=== PATIENT | female | born 1955 | race Hispanic/Latino ===

== ENCOUNTER 2017-09-21 15:10 | Observation (INO) | payer SELFPAY ==
[2017-09-21 15:57] LABS: Anion Gap 11 mmol/L (10-20); BUN (Urea Nitrogen) 55 mg/dL (9.8-20.1); Calc. Creatinine Clearance 0 mL/min (70-130); Calcium 8.4 mg/dL (7.8-10.44); Carbon Dioxide 18 mmol/L (23-31); Chloride 113 mmol/L (98-107); Estimated GFR-MDRD 11; Glucose 109 mg/dL (80-115); Potassium 6.1 mmol/L (3.5-5.1); Sodium 136 mmol/L (136-145)
[2017-09-21 16:38] LABS: #Eosinphils 0.5 thou/uL (0.0-0.7); #Lymphocytes 1.9 thou/uL (1.20-3.40); #Monocytes 0.3 thou/uL (0.11-0.59); #Neutrophils 3.5 thou/uL (1.40-6.50); %Basophils 0.8 % (0.0-1.0); %Eosinophils 7.3 % (0.0-10.0); %Lymphocytes 30.7 % (21.0-51.0); %Monocytes 5.3 % (0.0-10.0); %Neutrophils 55.9 % (42.0-75.0); Hemoglobin 8.2 g/dL (12.0-16.0); Mean Corpuscular HGB CONC 34.2 g/dL (32.0-36.0); Mean Corpuscular Hemoglobin 32.1 pg (27.0-31.0); Mean Corpuscular Volume 93.9 fl (81.0-99.0); Mean Platelet Volume 7.9 fL (7.4-10.4); Platelet Count 193 thou/uL (130-400); RBC Distribution Width 12.9 % (11.5-14.5); Red Blood Cell (RBC) Count 2.54 mill/uL (4.20-5.40); White Blood Cell (WBC) Count 6.3 thou/uL (4.8-10.8)
[2017-09-21 16:41] LABS: CKMB 3.6 ng/mL (0-6.6); Troponin I Less than 0.010 ng/mL (< 0.028)
[2017-09-21] MEDS ORDERED: Milk Of Magnesia 30 ML UDCUP PO PRN (16:42)
[2017-09-21] MEDS ORDERED: Sodium Chloride 0.9% 1,000 ML IV SCH ×2 (16:45→18:46)
[2017-09-21] MEDS ORDERED: Dextrose 5% in Water 1,000 ML IV PRN (16:47)
[2017-09-21] MEDS ORDERED: Dextrose 50% Abboject 50 ML SYRINGE SLOW IVP PRN (16:47)
[2017-09-21] MEDS ORDERED: HumaLOG 300 UNITS/3 ML VIAL SC PRN (16:47)
--- NOTE | 2017-09-21 17:56 | HP ---
PRIMARY CARE PHYSICIAN: ELOISA PHELAN MD PRESENTING COMPLAINT: "I was told I had abnormal labs." HISTORY OF PRESENT ILLNESS: Ms. Mark Davis is a 62-year-old female with a past medical history of type 2 diabetes mellitus, hypertension, nephrolithiasis , and CKD who presented to the emergency room after she went to [facility] and was told she had abnormal labs. She was called and told to present to the emergency room. She has no complaints. Her appetite is good, but she reports she does not really drink enough water. She has no chest pain, shortness of breath, dizziness, diaphoresis. She has no palpitations, PND, orthopnea, or lower extremity edema. PAST MEDICAL HISTORY: As stated in the HPI. PAST SURGICAL HISTORY: None. FAMILY HISTORY: Reviewed and noncontributory. SOCIAL HISTORY: Does not drink alcohol, smoke cigarettes, or use illicit drugs. ALLERGIES: None. HOME MEDICATIONS: None yet, will be reviewed. REVIEW OF SYSTEMS: Ten-point review of systems is conducted and negative except as stated in HPI. PHYSICAL EXAMINATION: VITAL SIGNS: Elevated blood pressure with systolic in the 180s. GENERAL: Not in acute distress, lying comfortable in the bed. HEENT: Normocephalic, atraumatic. Not pale. Anicteric. PERRLA. EOMI. Moist mucous membranes. RESPIRATORY: Vesicular breath sounds bilaterally. No wheezes, rales, or rhonchi. CARDIOVASCULAR: S1, S2 with regular rate and rhythm. No murmurs, rubs, or gallops. ABDOMEN: Soft, nontender, nondistended. Bowel sounds are positive. No hepatosplenomegaly. MUSCULOSKELETAL: No edema, no skeletal abnormalities. Moves all extremities spontaneously. NEUROLOGIC: Alert and oriented to time, place and person. No focal deficits. PSYCHIATRIC: Normal mood and affect. SKIN: Warm, dry, well perfused. No rashes or lesions. LABORATORY DATA: Significant for mildly low for anemia with hemoglobin 8.2. Chemistry with potassium of 6.1, BUN and creatinine of 55 and 4.16 respectively. Troponin is less than 0.010. ASSESSMENT AND PLAN: 1. Acute on chronic renal failure in a patient with what seems to be a newly diagnosed chronic renal failure presenting with acute failure. She was started on IV fluids. We will also obtain a renal ultrasound and a Nephrology consult. We will repeat labs and trend creatinine. 2. Hyperkalemia, likely secondary to acute renal failure. She is asymptomatic. She has received 1 dose of Kayexalate. We will repeat another dose later and monitor on telemetry. 3. Hypertension. Blood pressure is currently uncontrolled. We will resume home medications and monitor. Hydralazine IV p.r.n. for a systolic blood pressure greater than 180. 4. Type 2 diabetes mellitus. She reports being diet controlled. We will obtain hemoglobin A1c and place on a diabetic diet. Hypoglycemia protocol and fingerstick glucose before meals and at bedtime. 5. Chronic kidney disease. Retroperitoneal ultrasound ordered. We will also monitor in's and out's. CODE STATUS: FULL. MTDD
[2017-09-21] MEDS ORDERED: Carvedilol 6.25 MG TAB PO SCH (18:47)
[2017-09-21] MEDS: hydrALAZINE 20 MG/ML VIAL SLOW IVP PRN (18:48)
--- NOTE | 2017-09-21 19:12 | ULT ---
RENAL SONOGRAM 09/21/17 HISTORY: Medical renal disease. FINDINGS: The right kidney measures 8.6 cm x 3.7 cm with the left kidney measuring 9.6 cm x 4.7 cm. No renal ma ss, renal calculus or hydronephrosis is seen bilaterally. There is partial obscuration of the left ki dney due to shadowing from bowel gas, again no definite abnormality seen involving the left kidney. The urinary bladder has a normal sonographic appearance with the urinary bladder volume of 259.2 mL. IMPRESSION: Normal appearing bilateral kidneys without evidence of hydronephrosis. POS: SUNNY
[2017-09-21 19:14] LABS: Anion Gap 13 mmol/L (10-20); BUN (Urea Nitrogen) 54 mg/dL (9.8-20.1); Calc. Creatinine Clearance 0 mL/min (70-130); Calcium 8.6 mg/dL (7.8-10.44); Carbon Dioxide 16 mmol/L (23-31); Chloride 114 mmol/L (98-107); Estimated GFR-MDRD 11; Glucose 96 mg/dL (80-115); Potassium 5.7 mmol/L (3.5-5.1); Sodium 137 mmol/L (136-145)
[2017-09-21] MEDS ORDERED: Ondansetron ORAL SOLN. 4 MG/5 ML UDCUP PO PRN (19:21)
[2017-09-21] MEDS: Acetaminophen 325 MG TAB PO PRN (19:31)
[2017-09-21] MEDS: Ondansetron HCl/PF 4 MG/2 ML Vial IVP PRN (19:31)
[2017-09-21] MEDS: Famotidine 20 MG TAB PO SCH (19:50)
[2017-09-21] MEDS: Heparin 5,000 UNITS/ML VIAL SC SCH (19:52)
[2017-09-21] MEDS ORDERED: Sodium Bicarbonate 150 MEQ in Dextrose 5% in Water 1,000 ML IV ONE ×2 (20:00)
--- NOTE | 2017-09-21 20:35 | CON ---
DATE OF CONSULTATION: 09/21/2017 CONSULTING PHYSICIAN: Dr. Figueredo. REASON FOR CONSULTATION: Acute kidney injury. REASON FOR PRESENTATION: Abnormal labs. HISTORY OF PRESENT ILLNESS: A 62-year-old female with history of CKD, type 2 diabetes, hypertension, following with Dr. Padilla at [facility], and was sent to the hospital for abnormal labs with a potassium of 6.3. Her baseline creatinine is 3.6. No fever or chills. No nausea or vomiting. No change in medication. She was on MARCO inhibitor. PAST MEDICAL HISTORY: Positive for CKD stage 4, hypertension, type 2 diabetes, nephrolithiasis. PAST SURGICAL HISTORY: None. HOME MEDICATIONS: Lisinopril, clonidine, and atenolol. ALLERGIES: No known drug allergies. SOCIAL HISTORY: No smoking, alcohol or cigarettes. FAMILY HISTORY: No history of kidney disease. REVIEW OF SYSTEMS: The following complete review of systems was negative, unless otherwise mentioned in the HPI or below: Constitutional: Weight loss or gain, ability to conduct usual activities. Skin: Rash, itching. Eyes: Double vision, pain. ENT/Mouth: Nose bleeding, neck stiffness, pain, tenderness. Cardiovascular: Palpitations, dyspnea on exertion, orthopnea. Respiratory: Shortness of breath, wheezing, cough, hemoptysis, fever or night sweats. Gastrointestinal: Poor appetite, abdominal pain, heartburn, nausea, vomiting, constipation, or diarrhea. Genitourinary: Urgency, frequency, dysuria, nocturia. Musculoskeletal: Pain, swelling. Neurologic/Psychiatric: Anxiety, depression. Allergy/Immunologic: Skin rash, bleeding tendency. PHYSICAL EXAMINATION: GENERAL: This is a well-built female, in no apparent distress. VITAL SIGNS: Temperature 97.9, pulse 74, respiratory 18, blood pressure 229/96. HEENT: Atraumatic, normocephalic. Oral mucosa is moist. NECK: Supple, no masses. CARDIOVASCULAR: S1, S2. Rate and rhythm regular. RESPIRATORY: Clear. ABDOMEN: Soft. MUSCULOSKELETAL: 1+ edema. DERMATOLOGIC: No rash. NEUROLOGIC: Alert, awake. PSYCHIATRIC: Mood and affect normal. LABORATORY: Hemoglobin 8.2. Potassium is 5.7, BUN 54, creatinine is 4.02. ASSESSMENT AND PLAN: 1. Acute kidney injury, on chronic kidney stage IV, baseline creatinine is around 3.6. We will hydr ate as tolerated. 2. Hypokalemia. Continue supportive care and management. 3. Acidosis, currently on hydration. We will consider bicarbonate drip. 4. Anemia. We will check iron studies and Epogen if tolerated. 5. Follow with primary hide selector. Plan is to start on bicarbonate. We will follow.
[2017-09-21] MEDS: Sodium Bicarbonate Tab 325 MG TAB PO SCH (21:08)
[2017-09-21 21:10] VITALS: BMI 28.0
[2017-09-21] MEDS: cloNIDine 0.2 MG TAB PO SCH (22:40)
[2017-09-22] MEDS: Ondansetron HCl/PF 4 MG/2 ML Vial IVP PRN ×2 (02:30→08:39)
[2017-09-22] MEDS: hydrALAZINE 20 MG/ML VIAL SLOW IVP PRN (03:09)
[2017-09-22 04:49] LABS: #Eosinphils 0.1 thou/uL (0.0-0.7); #Lymphocytes 1.2 thou/uL (1.20-3.40); #Monocytes 0.3 thou/uL (0.11-0.59); #Neutrophils 5.4 thou/uL (1.40-6.50); %Basophils 0.5 % (0.0-1.0); %Lymphocytes 17.6 % (21.0-51.0); %Monocytes 3.6 % (0.0-10.0); %Neutrophils 77.3 % (42.0-75.0); Hemoglobin 8.3 g/dL (12.0-16.0); Mean Corpuscular HGB CONC 34.4 g/dL (32.0-36.0); Mean Corpuscular Hemoglobin 32.2 pg (27.0-31.0); Mean Corpuscular Volume 93.5 fl (81.0-99.0); Mean Platelet Volume 8.3 fL (7.4-10.4); Platelet Count 183 thou/uL (130-400); Red Blood Cell (RBC) Count 2.58 mill/uL (4.20-5.40); White Blood Cell (WBC) Count 6.9 thou/uL (4.8-10.8)
[2017-09-22 04:54] LABS: Anion Gap 11 mmol/L (10-20); BUN (Urea Nitrogen) 53 mg/dL (9.8-20.1); Calc. Creatinine Clearance 17 mL/min (70-130); Calcium 8.2 mg/dL (7.8-10.44); Carbon Dioxide 19 mmol/L (23-31); Chloride 112 mmol/L (98-107); Estimated GFR-MDRD 12; Glucose 147 mg/dL (80-115); Potassium 5.5 mmol/L (3.5-5.1); Sodium 136 mmol/L (136-145)
[2017-09-22 04:55] LABS: Cardiac Risk 4.1 (Less than 4.5); Hemoglobin A1c 5.4 % (4.0-6.0)
[2017-09-22] MEDS: Acetaminophen 325 MG TAB PO PRN (07:44)
[2017-09-22] MEDS: cloNIDine 0.2 MG TAB PO SCH ×2 (07:45→20:04)
[2017-09-22] MEDS: Heparin 5,000 UNITS/ML VIAL SC SCH ×3 (07:46→20:04)
[2017-09-22] MEDS: Sodium Bicarbonate Tab 325 MG TAB PO SCH ×2 (07:47→20:05)
[2017-09-22] MEDS ORDERED: Carvedilol 6.25 MG TAB PO SCH (08:00)
[2017-09-22] MEDS ORDERED: Lisinopril 10 MG TAB PO SCH (09:00)
[2017-09-22] MEDS: Carvedilol 6.25 MG TAB PO SCH ×3 (11:47→16:34)
--- NOTE | 2017-09-22 15:47 | PDOC.PN ---
- Subjective Encounter Start Date: 09/22/17 Encounter Start Time: 15:49 Subjective: No new complaints. -: No acute events overnight. - Objective MAR Reviewed: Yes Vital Signs & Weight: Vital Signs (12 hours) Temp Pulse Resp BP BP Pulse Ox 09/22/17 15:12 98.5 F 64 16 191/77 H 96 09/22/17 11:51 145/65 H 09/22/17 11:23 98.9 F 74 16 145/65 H 97 09/22/17 07:46 167/73 H 09/22/17 07:45 98.3 F 72 15 167/73 H 167/73 H 96 09/22/17 04:00 85 20 132/63 96 Weight Weight 153 lb 8 oz I&O: 09/21/17 09/22/17 09/23/17 06:59 06:59 06:59 Intake Total 1075 480 Output Total 700 Balance 375 480 Result Diagrams: 09/22/17 04:13 09/22/17 04:13 Additional Labs: Accuchecks 09/22/17 09/22/17 11:30 04:14 POC Glucose 192 H 151 H Phys Exam - Physical Examination Constitutional: NAD HEENT: PERRLA, moist MMs, sclera anicteric Neck: no JVD, supple, full ROM Respiratory: no wheezing, no rales, no rhonchi, clear to auscultation bilateral Cardiovascular: RRR, no significant murmur, no rub Gastrointestinal: soft, non-tender, no distention, positive bowel sounds Musculoskeletal: no edema, pulses present Neurological: non-focal, moves all 4 limbs Psychiatric: normal affect, A&O x 3 Skin: no rash, normal turgor Dx/Plan (1) Acute on chronic renal failure Code(s): N17.9 - ACUTE KIDNEY FAILURE, UNSPECIFIED; N18.9 - CHRONIC KIDNEY DISEASE, UNSPECIFIED Status: Acute Qualifiers: Acute renal failure type: unspecified Chronic kidney disease stage: stage 4 (severe) Qualified Code(s): N17.9 - Acute kidney failure, unspecified; N18.4 - Chronic kidney disease, stage 4 (severe); N18.4 - Chronic kidney disease , stage 4 (severe); N18.4 - Chronic kidney disease, stage 4 (severe); N18.4 - Chronic kidney disease, stage 4 (severe) Comment: Improving w hydration. nephrology on board. Recs appreciated. (2) HTN (hypertension) Code(s): I10 - ESSENTIAL (PRIMARY) HYPERTENSION Status: Acute Qualifiers: Hypertension type: essential hypertension Qualified Code(s): I10 - Essential (primary) hypertension Comment: Not at goal. Coreg increased to 25 mg BID. Continue clonidie. Hydralazine PRN for SBP > 180/ (3) Hyperkalemia Code(s): E87.5 - HYPERKALEMIA Status: Acute Comment: Improving. Received kayexalate. No EKG changes. (4) Metabolic acidosis Code(s): E87.2 - ACIDOSIS Status: Acute Comment: Continue Sodium bicarb PO - Plan cont current plan of care, plan discussed w/ family, DVT proph w/heparin * . Review of Systems - Medications/Allergies Allergies/Adverse Reactions: Allergies Allergy/AdvReac Type Severity Reaction Status Date / Time No Known Drug Allergies Allergy Verified 09/21/17 20:45 Medications: Current Medications Acetaminophen (Tylenol) 650 mg PO Q4H PRN PRN Reason: Headache/Fever or Pain Last Admin: 09/22/17 07:44 Dose: 650 mg Carvedilol (Coreg) 25 mg PO BID-[facility] Clonidine (Catapres) 0.2 mg PO BID [facility] Last Admin: 09/22/17 07:45 Dose: 0.2 mg Dextrose/Water (Dextrose 50%) 25 gm SLOW IVP PRN PRN PRN Reason: Hypoglycemia Famotidine (Pepcid) 20 mg PO QPM [facility] Last Admin: 09/21/17 19:50 Dose: 20 mg Glucagon (Glucagon) 1 mg IM PRN PRN PRN Reason: Hypoglycemia Heparin Sodium (Porcine) (Heparin) 5,000 units SC TID [facility] Last Admin: 09/22/17 14:31 Dose: 5,000 units Hydralazine HCl (Apresoline) 10 mg SLOW IVP Q4H PRN PRN Reason: Blood Pressure Last Admin: 09/22/17 03:09 Dose: 10 mg Dextrose/Water (D5w) 1,000 mls @ 0 mls/hr IV .Q0M PRN; As Directed PRN Reason: Hypoglycemia Insulin Human Lispro (Humalog) 0 units SC .MILD SLIDING SCALE PRN PRN Reason: Mild Correctional Scale Lactulose (Lactulose) 20 gm PO DAILYPRN PRN PRN Reason: Constipation Magnesium Hydroxide (Milk Of Magnesium) 30 ml PO DAILYPRN PRN PRN Reason: Constipation Ondansetron HCl (Zofran) 4 mg PO Q6H PRN PRN Reason: Nausea/Vomiting Ondansetron HCl (Zofran) 4 mg IVP Q6H PRN PRN Reason: Nausea/Vomiting Last Admin: 09/22/17 08:39 Dose: 4 mg Sodium Bicarbonate (Bicarbonate, Sodium) 650 mg PO BID [facility] Last Admin: 09/22/17 07:47 Dose: Not Given Sodium Chloride (Flush - Normal Saline) 10 ml IVF Q12HR [facility] Last Admin: 09/22/17 07:47 Dose: Not Given Sodium Chloride (Flush - Normal Saline) 10 ml IVF PRN PRN PRN Reason: Saline Flush Last Admin: 09/22/17 03:10 Dose: 10 ml Sodium Polystyrene Sulfonate (Kayexelate Oral Susp 15 Gm/60 Ml) 30 gm PO 1400 [facility] Stop: 09/22/17 16:00 Last Admin: 09/22/17 14:31 Dose: 30 mg
[2017-09-22] MEDS ORDERED: Amlodipine 5 MG TAB PO SCH (16:15)
--- NOTE | 2017-09-22 16:36 | PRG ---
DATE OF SERVICE: 09/22/2017 SUBJECTIVE: Patient was seen and examined at bedside and overnight events noted. Patient denies any s hortness of breath or chest pain or palpitation. No history of nausea or vomiting or diarrhea or feve r or chills or cramps. OBJECTIVE: General: This is a well-built female in no apparent distress. Vital Signs: Temperature 98.5, pulse 64, respiratory rate 16, and blood pressure 191/77. HEENT: Atraumatic, normocephalic, Oral mucosa is moist. Neck: Supple. Cardiovascular: S1 and S2 heard. Rate and rhythm regular. Respiratory: Clear to auscultation. Gastrointestinal: Abdomen is soft. Musculoskeletal: No tenderness. No edema. Dermatologic: No skin rash. Neurologic: Alert and awake and oriented X3. No focal neurologic deficits. Moving all the extremities . Psychiatric: Mood and affect normal. LABORATORY DATA: Potassium is 5.5, BUN is 53, and creatinine is 3.9. ASSESSMENT AND PLAN: 1. Acute kidney injury on chronic kidney, stage 4. Renal function is stable and slightly better. 2. Hyperkalemia, better. 3. Acidosis. Continue bicarbonate drip. 4. Anemia. Iron deficiency, start on iron pills and also we will start on Epogen.
[2017-09-22] MEDS: Famotidine 20 MG TAB PO SCH (20:04)
[2017-09-23] MEDS: Acetaminophen 325 MG TAB PO PRN (00:51)
[2017-09-23] MEDS: Carvedilol 6.25 MG TAB PO SCH (04:45)
[2017-09-23 04:51] LABS: #Eosinphils 0.2 thou/uL (0.0-0.7); #Lymphocytes 2.3 thou/uL (1.20-3.40); #Monocytes 0.4 thou/uL (0.11-0.59); #Neutrophils 2.7 thou/uL (1.40-6.50); %Basophils 0.7 % (0.0-1.0); %Eosinophils 4.1 % (0.0-10.0); %Lymphocytes 40.5 % (21.0-51.0); %Neutrophils 47.8 % (42.0-75.0); Hemoglobin 7.6 g/dL (12.0-16.0); Mean Corpuscular HGB CONC 33.4 g/dL (32.0-36.0); Mean Corpuscular Hemoglobin 31.8 pg (27.0-31.0); Mean Platelet Volume 8.1 fL (7.4-10.4); Platelet Count 175 thou/uL (130-400); RBC Distribution Width 13.2 % (11.5-14.5); Red Blood Cell (RBC) Count 2.38 mill/uL (4.20-5.40); White Blood Cell (WBC) Count 5.7 thou/uL (4.8-10.8)
[2017-09-23 05:04] LABS: Anion Gap 9 mmol/L (10-20); BUN (Urea Nitrogen) 48 mg/dL (9.8-20.1); Calc. Creatinine Clearance 15 mL/min (70-130); Carbon Dioxide 24 mmol/L (23-31); Chloride 109 mmol/L (98-107); Estimated GFR-MDRD 11; Glucose 116 mg/dL (80-115); Potassium 4.5 mmol/L (3.5-5.1); Sodium 137 mmol/L (136-145)
[2017-09-23] MEDS: cloNIDine 0.2 MG TAB PO SCH (07:46)
[2017-09-23] MEDS: Sodium Bicarbonate Tab 325 MG TAB PO SCH (07:46)
[2017-09-23] MEDS: Heparin 5,000 UNITS/ML VIAL SC SCH (07:47)
[2017-09-23] MEDS: Ondansetron HCl/PF 4 MG/2 ML Vial IVP PRN (07:49)
[2017-09-23] MEDS ORDERED: Ferrous Gluconate 324 MG TAB PO SCH (08:00)
[2017-09-23] MEDS ORDERED: Epoetin (ESRD) 10,000 UNITS/ML VIAL SC SCH (09:00)
[2017-09-23] MEDS ORDERED: Amlodipine 5 MG TAB PO SCH ×2 (09:00)
[2017-09-23] MEDS ORDERED: NIFEdipine XL 30 MG TAB PO SCH (09:00)
[2017-09-23] MEDS ORDERED: cloNIDine 0.1 MG TAB PO SCH (09:15)
--- NOTE | 2017-09-23 11:27 | PDOC.PN ---
- Subjective Encounter Start Date: 09/23/17 Encounter Start Time: 11:28 Subjective: No new complaints today. Blood pressure elevated earlier but improved -: No acute overnight events. - Objective MAR Reviewed: Yes Vital Signs & Weight: Vital Signs (12 hours) Temp Pulse Resp BP BP Pulse Ox 09/23/17 09:34 135/65 09/23/17 09:20 65 135/65 09/23/17 08:52 173/73 H 09/23/17 08:00 98.6 F 67 16 09/23/17 07:46 67 218/86 H 09/23/17 07:38 98.0 F 66 18 218/86 H 96 09/23/17 06:11 187/77 H 09/23/17 04:45 195/85 H 09/23/17 04:37 195/85 H 09/23/17 04:24 98.6 F 71 16 201/78 H 94 L Weight Weight 155 lb 6.4 oz I&O: 09/22/17 09/23/17 09/24/17 06:59 06:59 06:59 Intake Total 1075 2020 Output Total 700 1200 Balance 375 820 Result Diagrams: 09/23/17 04:24 09/23/17 04:24 Additional Labs: Accuchecks 09/22/17 09/22/17 09/22/17 20:05 16:39 11:30 POC Glucose 174 H 142 H 192 H Phys Exam - Physical Examination Constitutional: NAD HEENT: PERRLA, moist MMs, sclera anicteric Neck: no JVD, supple, full ROM Respiratory: no wheezing, no rales, no rhonchi, clear to auscultation bilateral Cardiovascular: RRR, no significant murmur, no rub Gastrointestinal: soft, non-tender, no distention, positive bowel sounds Musculoskeletal: no edema, pulses present Neurological: non-focal, moves all 4 limbs Psychiatric: normal affect, A&O x 3 Skin: no rash, normal turgor Dx/Plan (1) Acute on chronic renal failure Code(s): N17.9 - ACUTE KIDNEY FAILURE, UNSPECIFIED; N18.9 - CHRONIC KIDNEY DISEASE, UNSPECIFIED Status: Acute Qualifiers: Acute renal failure type: unspecified Chronic kidney disease stage: stage 4 (severe) Qualified Code(s): N17.9 - Acute kidney failure, unspecified; N18.4 - Chronic kidney disease, stage 4 (severe); N18.4 - Chronic kidney disease , stage 4 (severe); N18.4 - Chronic kidney disease, stage 4 (severe); N18.4 - Chronic kidney disease, stage 4 (severe) Comment: Nephrology on board. Recs appreciated. (2) HTN (hypertension) Code(s): I10 - ESSENTIAL (PRIMARY) HYPERTENSION Status: Acute Qualifiers: Hypertension type: essential hypertension Qualified Code(s): I10 - Essential (primary) hypertension Comment: Achieving beter control. Coreg, clonidie and Nifedipine on board. Hydralazine PRN for SBP > 180. (3) Metabolic acidosis Code(s): E87.2 - ACIDOSIS Status: Resolved Comment: Continue Sodium bicarb PO (4) Hyperkalemia Code(s): E87.5 - HYPERKALEMIA Status: Resolved Comment: Improving. Received kayexalate. No EKG changes. (5) Anemia in chronic kidney disease Code(s): N18.9 - CHRONIC KIDNEY DISEASE, UNSPECIFIED; D63.1 - ANEMIA IN CHRONIC KIDNEY DISEASE Status: Acute Qualifiers: Chronic kidney disease stage: stage 4 (severe) Qualified Code(s): N18.4 - Chronic kidney disease, stage 4 (severe); D63.1 - Anemia in chronic kidney disease; D63.1 - Anemia in chronic kidney disease Comment: Ferrou sulfate and Procrit. - Plan cont current plan of care, out of bed/ambulate, DVT proph w/heparin * . Review of Systems - Medications/Allergies Allergies/Adverse Reactions: Allergies Allergy/AdvReac Type Severity Reaction Status Date / Time No Known Drug Allergies Allergy Verified 09/21/17 20:45 Medications: Current Medications Acetaminophen (Tylenol) 650 mg PO Q4H PRN PRN Reason: Headache/Fever or Pain Last Admin: 09/23/17 00:51 Dose: 650 mg Carvedilol (Coreg) 25 mg PO BID-[facility] Last Admin: 09/23/17 04:45 Dose: 25 mg Clonidine (Catapres) 0.2 mg PO TID [facility] Dextrose/Water (Dextrose 50%) 25 gm SLOW IVP PRN PRN PRN Reason: Hypoglycemia Epoetin Cosmo (Procrit) 10,000 units SC Q7D [facility] Last Admin: 09/23/17 07:45 Dose: 10,000 units Famotidine (Pepcid) 20 mg PO QPM [facility] Last Admin: 09/22/17 20:04 Dose: 20 mg Ferrous Gluconate (Fergon) 324 mg PO QAM-WM [facility] Last Admin: 09/23/17 07:47 Dose: 324 mg Glucagon (Glucagon) 1 mg IM PRN PRN PRN Reason: Hypoglycemia Heparin Sodium (Porcine) (Heparin) 5,000 units SC TID [facility] Last Admin: 09/23/17 07:47 Dose: 5,000 units Hydralazine HCl (Apresoline) 10 mg SLOW IVP Q4H PRN PRN Reason: Blood Pressure Last Admin: 09/22/17 03:09 Dose: 10 mg Dextrose/Water (D5w) 1,000 mls @ 0 mls/hr IV .Q0M PRN; As Directed PRN Reason: Hypoglycemia Insulin Human Lispro (Humalog) 0 units SC .MILD SLIDING SCALE PRN PRN Reason: Mild Correctional Scale Lactulose (Lactulose) 20 gm PO DAILYPRN PRN PRN Reason: Constipation Magnesium Hydroxide (Milk Of Magnesium) 30 ml PO DAILYPRN PRN PRN Reason: Constipation Nifedipine (Procardia Xl) 30 mg PO DAILY [facility] Last Admin: 09/23/17 09:33 Dose: Not Given Ondansetron HCl (Zofran) 4 mg PO Q6H PRN PRN Reason: Nausea/Vomiting Ondansetron HCl (Zofran) 4 mg IVP Q6H PRN PRN Reason: Nausea/Vomiting Last Admin: 09/23/17 07:49 Dose: 4 mg Sodium Bicarbonate (Bicarbonate, Sodium) 650 mg PO BID [facility] Last Admin: 09/23/17 07:46 Dose: 650 mg Sodium Chloride (Flush - Normal Saline) 10 ml IVF Q12HR [facility] Last Admin: 09/23/17 07:47 Dose: 10 ml Sodium Chloride (Flush - Normal Saline) 10 ml IVF PRN PRN PRN Reason: Saline Flush Last Admin: 09/22/17 03:10 Dose: 10 ml
[2017-09-23 12:19] VITALS: BP 166/70; TEMP 98.2
[2017-09-23] MEDS ORDERED: cloNIDine 0.2 MG TAB PO SCH (15:00)
--- NOTE | 2017-09-23 15:32 | DIS ---
DATE OF ADMISSION: 09/21/2017 DATE OF DISCHARGE: 09/23/2017 DISCHARGE DIAGNOSES: Hypertensive urgency, acute on chronic renal failure stage IV, hyperkalemia, an d type 2 diabetes mellitus. HISTORY OF PRESENT ILLNESS/HOSPITAL COURSE: Ms. Mark Davis is a 62-year-old female with a history o f type 2 diabetes mellitus, hypertension, nephrolithiasis, and CKD stage 4, who presented to the [facility] room after routine clinic visit revealed abnormal labs. She had high potassium and her renal f unction was worse until to present to the emergency room, she had no complaints otherwise. In the em ergency room, she was found to be severely hypertensive with blood pressure and this is 200 systolic, as well as hyperkalemic, and elevated BUN and creatinine, which is metabolic acidosis. She was imme diately started on p.o. medication after diagnosis of hypertensive urgency was made. Blood pressure remained better controlled. She also received Kayexalate, which improved serum potassium. Nephrolog y review of this patient. I will start her on a bicarbonate drip for her metabolic acidosis. While in hospital, her renal function improved and she was converted to p.o. sodium bicarbonate. Her blood pressure regimen was also reviewed and the patient was discharged after she achieved adequately cont rolled. 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 Padilla for further treatment of her chronic renal failure and tight her blood pressure control. DISCHARGE MEDICATIONS: Carvedilol 25 mg b.i.d., clonidine 0.2 mg t.i.d., ferrous gluconate 325 mg ev veda morning, nifedipine 30 mg daily, and sodium bicarbonate 650 mg twice a day. DISCONTINUED MEDICATION: Lisinopril 10 mg daily, clonidine 0.2 mg twice a day. PHYSICAL EXAMINATION: She was examined on the day of discharge. VITAL SIGNS: Blood pressure 135/65, pulse rate 65, temperature 98.6 degree Fahrenheit, and oxygen sa turation 95% on room air. GENERAL: Not in acute distress, lying comfortably in bed. HEENT: PERRLA. Moist mucous membrane. Sclerae, anicteric, not pale. Moist mucous membranes. NECK: No JVD. Full range of movement. RESPIRATORY: Vesicular breath sounds bilaterally. No wheezes or rales. CARDIOVASCULAR: S1 and S2 with regular rate and rhythm. No murmurs, rubs, or gallops. GASTROINTESTINAL: Soft, nontender, nondistended. Bowel sounds positive. MUSCULOSKELETAL: No edema. Pulses present. Moves all extremities spontaneously. NEUROLOGIC: Alert and well oriented to time, place, and person. No focal deficit. PSYCHIATRIC: Normal mood and affect. SKIN: Warm, nontender, well perfused. No rashes or lesions. LABORATORY DATA: WBC 5.7, hemoglobin is 7.6, platelet 175. Sodium 137, potassium 4.5, chloride 109, bicarbonate 24, anion gap 9, BUN 48, creatinine 4.28, glucose 116, and calcium 8. IMAGING DATA: Renal ultrasound showed normal appearing bilateral kidneys without evidence of hydrone phrosis. CONSULTS: Nephrology. CONDITION AT DISCHARGE: Stable and improved. PROCEDURES: None. DIET: Renal, low sodium. CARE GOAL: She is to follow up with her primary care physician within 1 week of discharge for optima l blood pressure control. Also to follow up with her track [employer] repair supervisor to address her chronic kidney dise ase. ACTIVITY: To resume as tolerated. Discharge time 65 minutes including chart review and documentation.
--- NOTE | 2017-09-23 20:09 | PRG ---
DATE OF SERVICE: 09/23/2017 SUBJECTIVE: Patient was seen and examined at bedside and overnight events noted. Patient denies any shortness of breath or chest pain or palpitation. No history of nausea or vomiting or diarrhea or f ever or chills or cramps. OBJECTIVE: GENERAL: This is a well-built female in no apparent distress. VITAL SIGNS: Temperature , pulse , respiratory rate , blood pressure 135/65. HEENT: Atraumatic, normocephalic, Oral mucosa is moist. NECK: Supple. CARDIOVASCULAR: S1, S2 heard. Rate and rhythm regular. RESPIRATORY: Clear to auscultation. GASTROINTESTINAL: Abdomen is soft. MUSCULOSKELETAL: No tenderness. No edema. DERMATOLOGIC: No skin rash. NEUROLOGIC: Alert and awake and oriented x3. No focal neurologic deficits. Moving all the extremit ies. PSYCHIATRIC: Mood and affect normal. LABORATORY DATA: Potassium is 4.5, BUN is 48, and creatinine is 4.2. ASSESSMENT AND PLAN: 1. Acute kidney injury on chronic kidney stage IV. Renal function is stable. 2. Hyperkalemia. 3. Acidosis, better. 4. anemia. Continue on iron pills and on Epogen. Okay to follow up with her primary nephrolo gist. Might need renal replacement in the near future. Family updated.
[2017-09-23] MEDS ORDERED: cloNIDine 0.3 MG TAB PO SCH (21:00)
[2017-09-24] MEDS ORDERED: NIFEdipine XL 30 MG TAB PO SCH (09:00)
== END 2017-09-23 13:40 | disposition home or self-care (01) ==
LOC: ERS 15:10 → 2SW 18:32
PROVIDERS: ADMIT Internal Medicine; ATTEND Internal Medicine
DX: I16.0 Hypertensive urgency (principal); N17.9 Acute kidney failure, unspecified; E11.22 Type 2 diabetes mellitus with diabetic chronic kidney disease; I12.9 Hypertensive chronic kidney disease with stage 1 through stage 4 chronic kidney disease, or unspecified chronic kidney disease; N18.4 Chronic kidney disease, stage 4 (severe); E87.5 Hyperkalemia; E87.2 Acidosis; N20.0 Calculus of kidney; D50.9 Iron deficiency anemia, unspecified; Z79.899 Other long term (current) drug therapy
CPT/HCPCS: 36415; 36416; 76770; 80048; 80061; 82553; 82728; 83036; 83540; 83550; 84484; 85025; 90471; 90732; 93005; 96365; 96366; 96372; 96374; 96375; 96376; A4216; G0009; G0378; J0360; J1644; J2405; J7070; Q4081

== ENCOUNTER 2017-10-23 09:06 | Outpatient (CLI) | payer BC ==
[2017-10-23 10:33] LABS: #Basophils 0.1 thou/uL (0.0-0.2); #Eosinphils 0.6 thou/uL (0.0-0.7); #Lymphocytes 1.7 thou/uL (1.20-3.40); #Monocytes 0.5 thou/uL (0.11-0.59); #Neutrophils 3.9 thou/uL (1.40-6.50); %Basophils 0.8 % (0.0-1.0); %Eosinophils 8.7 % (0.0-10.0); %Lymphocytes 25.4 % (21.0-51.0); %Monocytes 6.7 % (0.0-10.0); %Neutrophils 58.4 % (42.0-75.0); Hemoglobin 8.2 g/dL (12.0-16.0); Mean Corpuscular HGB CONC 34.9 g/dL (32.0-36.0); Mean Corpuscular Hemoglobin 32.5 pg (27.0-31.0); Mean Corpuscular Volume 93.2 fl (81.0-99.0); Mean Platelet Volume 7.6 fL (7.4-10.4); Platelet Count 185 thou/uL (130-400); Red Blood Cell (RBC) Count 2.53 mill/uL (4.20-5.40); White Blood Cell (WBC) Count 6.7 thou/uL (4.8-10.8)
[2017-10-23 10:45] LABS: Anion Gap 11 mmol/L (10-20); BUN (Urea Nitrogen) 66 mg/dL (9.8-20.1); Calc. Creatinine Clearance 0 mL/min (70-130); Calcium 7.1 mg/dL (7.8-10.44); Carbon Dioxide 19 mmol/L (23-31); Chloride 110 mmol/L (98-107); Estimated GFR-MDRD 8; Glucose 168 mg/dL (80-115); Potassium 5.2 mmol/L (3.5-5.1); Sodium 135 mmol/L (136-145)
--- NOTE | 2017-10-23 15:52 | EKG ---
Test Reason : Blood Pressure : / mmHG Vent. Rate : 058 BPM Atrial Rate : 058 BPM P-R Int : 140 ms QRS Dur : 078 ms QT Int : 470 ms P-R-T Axes : 047 071 093 degrees QTc Int : [address] elevation, consider early repolarization Otherwise normal ECG Confirmed by LESLEY HENDERSON ([id number]) on 10/23/2017 3:52:34 PM Referred By: ANDREAS Confirmed By:LESLEY HENDERSON
== END 2017-10-23 09:07 | disposition home or self-care (01) ==
LOC: LABBT 09:06
PROVIDERS: ATTEND Specialist
DX: Z01.818 Encounter for other preprocedural examination (principal); N18.9 Chronic kidney disease, unspecified
CPT/HCPCS: 80048; 85025; 93005; 93010

== ENCOUNTER 2017-10-26 07:47 | Day surgery (SDC) | payer BC ==
--- NOTE | 2017-10-23 07:52 | HP ---
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 Padilla, geriatric physical therapist at [facility], referred for dialysis access. She has not ye t started dialysis. She has a hypertensive and diabetic nephropathy. She is being worked up for myriam al transplant at [facility], and in fact, has an appointment next week. Laboratories , 09/03/2017, reveal white count 6, hemoglobin 7.8, platelet count 171,000. BUN 58, creatinine 4.17, potassium 6.3. Hemoglobin A1c 5.4. She has undergone ultrasound vein mapping, both arms, later at [facility], 10/15/2017, revealing right basilic vein 6 mm, 5.7 mm, 5.3 mm, 5.2 mm; antecubital fossa 2.4 mm, 2 mm, and 1.9 mm distally. Right cephalic vein 3.3 mm, 3.6 mm , 3.4 mm, 3.7 mm; antecubital fossa, 1.3, 1.7, 1.3 mm forearm. Left basilic vein 4.4 mm, 4.6 mm, 4.0 mm, 4.2 mm; antecubital fossa distally 1.7, 1.9, and 2.2 mm. Left cephalic vein, 3.4, 3.3, 2.6 mm a nd 2.2 mm; antecubital fossa distally 2.4, 2.8, and 2.9 mm. She desires peritoneal dialysis. Plan i s for laparoscopic peritoneal dialysis catheter placement and left arm primary fistula. Risk of infe ction, bleeding, reoperation, malfunction of the fistula or PD catheter discussed and possibilities o f revisions and future surgeries discussed. She consents. She understands she will have to exercise her arm postoperatively after placement and there will be unrestricted use of her arm postoperativel y. She understands she will need to see the peritoneal dialysis nurse at her dialysis center approxi mately 3-7 days after placement of her PD catheter. Since is visiting her transplant center in [facility] on , we will plan this on 10/26/2017. ALLERGIES: None. TOBACCO: None. ALCOHOL: None. MEDICATIONS: Carvedilol 25 mg twice a day, clonidine 0.2 mg twice a day, nifedipine bicarbonate 650 mg 3 tablets twice a day. She has discontinued her glyburide, metoprolol 1 tablet 25 mg daily, trama dol p.r.n. PAST SURGICAL HISTORY: Laparoscopic cholecystectomy. PAST MEDICAL HISTORY: Diabetes, hypertension, diabetic medications discontinued, renal failure has p rogressed. She has not yet started dialysis. REVIEW OF SYSTEMS: Ten-point noncontributory. No cardiac symptoms. PHYSICAL EXAMINATION: VITAL SIGNS: 152 pounds, 62 inches 190/76, 66, 99.7 degrees. HEAD, EARS, EYES, NOSE, AND THROAT: Unremarkable. LUNGS: Clear to auscultation. CARDIAC: Regular rate and rhythm without murmur, rub, or gallop. ABDOMEN: Soft, nontender, no hernias evident. EXTREMITIES: No ankle edema. Good radial pulses bilaterally. ASSESSMENT AND PLAN: End-stage renal disease, progressive. She will need hemodialysis access. She is interested in peritoneal dialysis and has visited the peritoneal dialysis nurse and had been educa chet as to options. It has been reinforced that if peritoneal dialysis does not work out for her she is to do hemodialysis. We will plan laparoscopic peritoneal dialysis catheter and placement of a nava yolie fistula, left arm. She understands the risks and benefits and consents.
[2017-10-23 09:40] VITALS: BMI 28.0
[2017-10-26] MEDS ORDERED: CEFAZOLIN/Water 2 GM/20 ML SYRINGE ONE (09:55)
[2017-10-26] MEDS ORDERED: Protamine Sulfate 50 MG/5 ML VIAL ONE (09:56)
[2017-10-26] MEDS ORDERED: Bupivacaine HCl 0.5%/Epinephrine 1:200,000/PF 30 ml Vial ONE ×2 (09:56→11:09)
[2017-10-26] MEDS ORDERED: Heparin 5,000 UNITS/ML VIAL ONE (09:56)
[2017-10-26] MEDS ORDERED: Lidocaine 2% 10 ML INJ ONE ×2 (09:56→11:09)
[2017-10-26] MEDS ORDERED: Midazolam HCl 2 mg/2 ml Vial ONE (10:02)
[2017-10-26] MEDS ORDERED: Fentanyl 100 MCG/2 ML VIAL ONE (10:02)
[2017-10-26] MEDS ORDERED: Heparin 10,000 UNITS/1 ML VIAL ONE (10:46)
--- NOTE | 2017-10-26 12:15 | OP ---
DATE OF PROCEDURE: 10/26/2017 PREOPERATIVE DIAGNOSES: Chronic kidney disease, not yet started dialysis, planning renal transplant in the future. POSTOPERATIVE DIAGNOSES: Chronic kidney disease, not yet started dialysis, planning renal transplant in the future. PROCEDURE: Laparoscopic peritoneal dialysis catheter, double cuffed pigtail. Laparoscopic omentopex y. Left arm primary fistula, perforating branch antecubital vein to proximal radial artery, outflow cephalic vein primarily by anatomic considerations, but adequate basilic vein noted and retrograde an tecubital vein preserved. SURGEON: Dr. Floyd Brown ANESTHESIA: General. Local 0.25% Marcaine with epinephrine 60 mL mixed with 2% Xylocaine, 10 mL. PROCEDURE IN DETAIL: The patient was taken to the operating room where under general anesthesia, abd omen and left upper extremity was prepared with ChloraPrep, draped in routine fashion. Bilateral sub costal incisions made and pneumoperitoneum to 15 mmHg obtained with the Veress needle, replacing it w ith a 5 port and video laparoscope inserted. Remainder ports placed under laparoscopic visualization . The right lateral subcostal incision port placed 5 mm. Omentum reach down to the pelvis. There w as an adhesion to the sigmoid colon taken down with the LigaSure. Incision was made left paraumbilic al counter incision, an 8 mm port placed under laparoscopic visualization tunneling caudally through the subcutaneous tissue, rectus sheath penetrating the abdominal cavity inferiorly. Double cuffed pi gtail peritoneal dialysis catheter placed intraabdominally, placing the internal cuff in the rectus s leeann and external cuff in the subcutaneous tissue as a [place] dissector was placed through the ortiz nned exit site more inferior and lateral to the counter incision using the [place] dissector placed through this to the counter incision, grasping the catheter and pulling it through its new exit site, placed beneath the ____ cuff underneath subcutaneous tissue near the excess site. Subcutaneous tiss ues approximated with 4-0 Monocryl, skin with subdermal 4-0 Monocryl. Peritoneal dialysis catheter f lushed with heparinized saline solution and Dermabond Biopatch sterile dressing applied. Laparoscopic omentopexy performed with a GraNee needle fixating the omentum to the anterior abdominal wall with an 0 Vicryl suture, transabdominal fixation. Pneumoperitoneum reduced. All instruments r emoved and all skin incisions approximated with interrupted subdermal 4-0 Vicryl. DermaGlue applied. Incision made in the left arm just below the antecubital fossa longitudinally, carried down the skin and subcutaneous tissue. Antecubital vein identified, had good caliber, dissected free and a perfora ting branch antecubital vein, which primary fed the cephalic vein was dissected free and branches div ided between 4-0 silk ties and clips. Vein spatulated over branch points and interrogated with coron zacarias dilators, passing coronary dilators from a 2 mm to a 4 mm caliber dilator out the cephalic vein, which was directed more laterally, but finally directed cephalad up the upper arm. There was no obst ruction. The patient was given 6000 units of heparin intravenously by Anesthesia. Vein flushed with heparinized saline solution. Bulldog clamp applied. Proximal radial artery, ulnar artery dissected free along with the brachial artery. Longitudinal arteriotomy made sharply and elongated with Baptiste scissors and the proximal radial artery and after vascular clamps were applied and end vein to side proximal anastomosis created with continuous suture of 6-0 Prolene. Vascular clamps released and the re was good flow. The fistula interrogated by Doppler. Good hemostasis noted. The patient was give n 50 mg of protamine by Anesthesia. Subcutaneous tissues approximated with 3-0 Monocryl, skin with s ubdermal 4-0 Monocryl and DermaGlue applied.
[2017-10-26] MEDS ORDERED: HYDROcodone/Acetaminophen 5/325 mg Tablet ONE (14:15)
== END 2017-10-26 15:30 | disposition home or self-care (01) ==
LOC: SDC 07:47
PROVIDERS: ATTEND Specialist
PROC: 0WHG43Z Insertion of Infusion Device into Peritoneal Cavity, Percutaneous Endoscopic Approach (ICD-10-PCS; principal; 2017-10-26)
DX: I12.0 Hypertensive chronic kidney disease with stage 5 chronic kidney disease or end stage renal disease (principal); E11.22 Type 2 diabetes mellitus with diabetic chronic kidney disease; N18.6 End stage renal disease; K66.0 Peritoneal adhesions (postprocedural) (postinfection); Z79.84 Long term (current) use of oral hypoglycemic drugs; Z79.899 Other long term (current) drug therapy
CPT/HCPCS: 36416; J0670; J1644; J2250; J2720; J3010

== ENCOUNTER 2017-10-28 17:01 | Observation (INO) | payer BC ==
[2017-10-28 18:11] LABS: #Eosinphils 0.3 thou/uL (0.0-0.7); #Lymphocytes 1.6 thou/uL (1.20-3.40); #Monocytes 0.5 thou/uL (0.11-0.59); #Neutrophils 5.1 thou/uL (1.40-6.50); %Basophils 0.2 % (0.0-1.0); %Eosinophils 3.5 % (0.0-10.0); %Lymphocytes 21.5 % (21.0-51.0); %Neutrophils 67.8 % (42.0-75.0); Hemoglobin 8.3 g/dL (12.0-16.0); Mean Corpuscular HGB CONC 33.2 g/dL (32.0-36.0); Mean Corpuscular Hemoglobin 31.6 pg (27.0-31.0); Mean Corpuscular Volume 95.3 fl (81.0-99.0); Mean Platelet Volume 7.2 fL (7.4-10.4); Platelet Count 186 thou/uL (130-400); RBC Distribution Width 16.2 % (11.5-14.5); Red Blood Cell (RBC) Count 2.63 mill/uL (4.20-5.40); White Blood Cell (WBC) Count 7.4 thou/uL (4.8-10.8)
[2017-10-28 18:32] LABS: ALT (SGPT) 10 U/L (8-55); AST (SGOT) 38 U/L (5-34); Albumin 3.3 g/dL (3.4-4.8); Alkaline Phosphatase 154 U/L (40-150); Anion Gap 14 mmol/L (10-20); BUN (Urea Nitrogen) 56 mg/dL (9.8-20.1); Bilirubin, Total 0.3 mg/dL (0.2-1.2); Calc. Creatinine Clearance 0 mL/min (70-130); Calcium 7.2 mg/dL (7.8-10.44); Carbon Dioxide 17 mmol/L (23-31); Chloride 110 mmol/L (98-107); Estimated GFR-MDRD 9; Globulin 3.5 g/dL (2.4-3.5); Glucose 127 mg/dL (80-115); Potassium 5.6 mmol/L (3.5-5.1); Protein, Total 6.8 g/dL (6.0-8.3); Sodium 135 mmol/L (136-145)
[2017-10-28 19:47] LABS: INR-International Normal Ratio 1.1; Prothrombin Time 14.5 SEC (12.0-14.7)
[2017-10-28 19:48] LABS: PTT 34.2 SEC (22.9-36.1)
[2017-10-28 20:00] LABS: Magnesium 1.9 mg/dL (1.6-2.6); Phosphorus 4.6 mg/dL (2.3-4.7)
[2017-10-28] MEDS ORDERED: Senokot 8.6 MG TAB PO PRN (20:52)
[2017-10-28] MEDS ORDERED: Acetaminophen 325 MG TAB PO PRN (20:52)
[2017-10-28] MEDS ORDERED: Guaifenesin DM 100-10/5 ML UDCUP PO PRN (20:52)
[2017-10-28] MEDS ORDERED: Ondansetron HCl/PF 4 MG/2 ML Vial IVP PRN (20:52)
[2017-10-28] MEDS ORDERED: Sodium Chloride 0.9% 1,000 ML IV SCH (21:00)
--- NOTE | 2017-10-28 21:59 | HP ---
REASON FOR ADMISSION: Intractable nausea and vomiting, moderate dehydration. HISTORY OF PRESENT ILLNESS: The patient gives history of not being able to eat or drink from morning . She has been having severe nausea and vomited 4 times. She has significant history of having had peritoneal dialysis catheter placed on Sunday. The patient states she was okay yesterday, but then s tarted to feel bad from this morning. The family finally brought her here. No complaints of abdomin al pain as such. She had a small bowel movement this morning. PAST MEDICAL AND SURGICAL HISTORY: History of chronic kidney disease, stage 4-5; diabetes mellitus t ype 2; hypertension; history of nephrolithiasis; left forearm fistula placed and peritoneal dialysis catheter placed on this Sunday by Dr. Brown; laparoscopic cholecystectomy. CURRENT MEDICATIONS: The patient is on Coreg 25 mg twice daily, clonidine 0.2 mg 3 times daily, ferr ous sulfate 324 mg daily, Procardia-XL 30 mg daily, sodium bicarbonate 650 mg p.o. daily. ALLERGIES: No known drug allergies. PERSONAL HISTORY: Does not abuse alcohol or drugs. No history of smoking. FAMILY HISTORY: Mother at the age of 89 years from old age. Father at the age of 67 years , he has had history of diabetes. REVIEW OF SYSTEMS: The following complete review of systems was negative, unless otherwise mentioned in the HPI or below: Constitutional: Weight loss or gain, ability to conduct usual activities. Skin: Rash, itching. Eyes: Double vision, pain. ENT/Mouth: Nose bleeding, neck stiffness, pain, tenderness. Cardiovascular: Palpitations, dyspnea on exertion, orthopnea. Respiratory: Shortness of breath, wheezing, cough, hemoptysis, fever or night sweats. Gastrointestinal: Poor appetite, abdominal pain, heartburn, nausea, vomiting, constipation, or diarr hea. Genitourinary: Urgency, frequency, dysuria, nocturia. Musculoskeletal: Pain, swelling. Neurologic/Psychiatric: Anxiety, depression. Allergy/Immunologic: Skin rash, bleeding tendency. PHYSICAL EXAMINATION: GENERAL: The patient is a 62-year-old female, who is currently not in any acute distress. VITAL SIGNS: Blood pressure 190/78, pulse 62 per minute, respiratory rate 20 per minute, temperature 98.4 degrees Fahrenheit, saturating 98% on room air. NECK: Supple, no elevated JVD. HEENT: Eyes: Extraocular muscles intact. Pupils are reacting to light. Oral cavity: Mucous membr anes are dry. No exudates or congestion. CARDIOVASCULAR: S1, S2 heard. Regular rhythm. RESPIRATORY: Air entry 1+ bilaterally. No rales or rhonchi. ABDOMEN: Soft. The patient has peritoneal dialysis catheter. The surgical site is covered and is c lean. No rigidity or guarding. Bowel sounds are heard. EXTREMITIES: No peripheral edema or calf tenderness. VASCULAR SYSTEM: Peripheral pulses 1+ bilateral, no ischemic ulcerations or gangrene. CENTRAL NERVOUS SYSTEM: No gross focal deficits seen. The patient is alert, awake, and oriented wel l. PSYCHIATRIC: The patient's mood is euthymic. No hallucinations or delusions. LABORATORY AND X-RAY FINDINGS: Sodium is 135, potassium is 5.6, serum bicarbonate is 17, BUN is 56, creatinine is 4.8, glucose is 127, calcium is 7.2, AST is 38, alkaline phosphatase is 154, and albumi n is 3.3. White count of 7, hemoglobin and hematocrit 8 and 25, platelet count 186, MCV is 95 with 6 7% neutrophils. CLINICAL IMPRESSION AND PLAN: The patient will be under observation for intractable nausea and vomit ing, and moderate dehydration. The patient does not appear to have any abdominal signs, although she has had peritoneal dialysis catheter placed on Sunday. If the patient were to develop abdominal meaghan n or if her nausea and vomiting gets worse, we will need a CT of the abdomen and pelvis with and with out contrast. For now, we will hold off on it. She will be gently hydrated with normal saline at 70 mL per hour. We will continue her Coreg, clonidine and Procardia as before. Dr. Reeder will be consul chet in the morning. We will closely monitor her electrolytes including bicarbonate. She will be on clear liquid diet and slowly advance it in the morning. We will continue to closely monitor her on o bservation.
[2017-10-28] MEDS: Heparin 5,000 UNITS/ML VIAL SC SCH (22:22)
[2017-10-28] MEDS: Docusate 100 MG CAP PO SCH (22:22)
[2017-10-28] MEDS: cloNIDine 0.2 MG TAB PO SCH (22:22)
[2017-10-28] MEDS ORDERED: Sodium Chloride 0.9% 10 ML ONE (22:26)
[2017-10-28 22:44] VITALS: BMI 27.0
[2017-10-29 04:57] LABS: #Eosinphils 0.4 thou/uL (0.0-0.7); #Lymphocytes 2.4 thou/uL (1.20-3.40); #Monocytes 0.6 thou/uL (0.11-0.59); %Basophils 0.3 % (0.0-1.0); %Eosinophils 5.6 % (0.0-10.0); %Monocytes 7.7 % (0.0-10.0); %Neutrophils 53.5 % (42.0-75.0); Hemoglobin 7.8 g/dL (12.0-16.0); Mean Corpuscular HGB CONC 33.5 g/dL (32.0-36.0); Mean Corpuscular Hemoglobin 31.8 pg (27.0-31.0); Mean Platelet Volume 7.7 fL (7.4-10.4); Platelet Count 179 thou/uL (130-400); RBC Distribution Width 16.3 % (11.5-14.5); Red Blood Cell (RBC) Count 2.46 mill/uL (4.20-5.40); White Blood Cell (WBC) Count 7.4 thou/uL (4.8-10.8)
[2017-10-29 05:54] LABS: Anion Gap 12 mmol/L (10-20); BUN (Urea Nitrogen) 53 mg/dL (9.8-20.1); Calc. Creatinine Clearance 14 mL/min (70-130); Calcium 6.9 mg/dL (7.8-10.44); Carbon Dioxide 16 mmol/L (23-31); Chloride 112 mmol/L (98-107); Estimated GFR-MDRD 10; Glucose 114 mg/dL (80-115); Potassium 5.1 mmol/L (3.5-5.1); Sodium 135 mmol/L (136-145)
[2017-10-29] MEDS ORDERED: Carvedilol 25 MG TAB PO SCH (08:00)
[2017-10-29] MEDS ORDERED: NIFEdipine XL 30 MG TAB PO SCH (09:00)
[2017-10-29] MEDS ORDERED: Famotidine 20 MG TAB PO SCH (09:00)
[2017-10-29] MEDS: Docusate 100 MG CAP PO SCH (09:17)
[2017-10-29] MEDS: cloNIDine 0.2 MG TAB PO SCH (09:17)
[2017-10-29] MEDS: Heparin 5,000 UNITS/ML VIAL SC SCH (09:19)
--- NOTE | 2017-10-29 09:42 | PRG ---
DATE OF SERVICE: 10/29/2017 SUBJECTIVE: Ms. Barba is a 62-year-old female with known history of chronic renal failure from diabetic nephropathy and longstanding hypertension, admitted for nausea and vomiting. Please no te, she underwent surgery on Sunday for PD catheter placement and AV fistula placement. Her nausea a nd vomiting are much improved. She was gently volume repleted and given Zofran for the nausea and vo miting. Of interest, the interview was done by her daughter, since the patient does not speak Luxem[place]. MEDICATIONS: Coreg 25 mg b.i.d., clonidine 0.2 mg t.i.d., ferrous sulfate 324 mg every day, Procardi a-XL 30 mg tab once a day, sodium bicarbonate 650 mg once a day. PAST MEDICAL HISTORY: 1. Chronic renal failure from diabetic nephropathy. 2. Longstanding hypertension. 3. Status post nephrolithiasis. PAST SURGICAL HISTORY: 1. Status post PD catheter placement. 2. Status post AV fistula placement. 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 Lives in [place]. No smoking, no alcohol intake, no IV drug abuse. No blood transfus ion. ALLERGIES: None. TRAUMA: None. IMMUNIZATIONS: Up-to-date. HOSPITALIZATION: Please see past medical history. FAMILY HISTORY: Positive family history of ESRD. PHYSICAL EXAMINATION: VITAL SIGNS: Blood pressure is 204/85 - this is before BP meds, heart rate 68, respiratory rate 12, temperature 98, pulse ox 94%. GENERAL EXAM: Awake, alert, comfortable, not in distress. SKIN: Adequate turgor. HEENT: Slightly pale conjunctivae, anicteric sclerae. NECK: No neck mass, no carotid bruits, no JVD. CHEST: No deformities. LUNGS: Clear breath sounds. HEART: Normal sinus rhythm. No murmur, no gallops, no rubs. ABDOMEN: Globular, soft, nontender, no masses. Positive for PD catheter in the abdomen. EXTREMITIES: No edema, no deformities. Positive for AV fistula in the arm. LABORATORY DATA: White count 7.4, hemoglobin 7.8. Sodium 135, potassium 5.1, chloride 112, carbon d ioxide 16, BUN 53, creatinine 4.67, GFR 10 mL per minute. ASSESSMENT AND PLAN: 1. Chronic renal failure from diabetic/hypertensive nephropathy, stable renal function. Creatinine slightly improved from 4.87-4.67. There is no indication for any emergent dialytic intervention. 2. Nausea and vomiting - this could be related from her recent peritoneal dialysis placement. Much improved with symptomatic treatment. Agree for planned discharge. Patient will follow up with her deburrer this weekend.
[2017-10-29 11:47] VITALS: TEMP 98.1
[2017-10-29 12:11] VITALS: BP 161/73
--- NOTE | 2017-10-29 12:29 | PDOC.PN ---
- Subjective Encounter Start Date: 10/29/17 Encounter Start Time: 08:40 Subjective: no nausea or vomiting -: no abd pain, feels better, wants to go home - Objective Resuscitation Status: Resuscitation Status FULL:Full Resuscitation MAR Reviewed: Yes Vital Signs & Weight: Vital Signs (12 hours) Temp Pulse Resp BP BP Pulse Ox 10/29/17 11:50 63 161/73 H 10/29/17 11:35 98.1 F 64 12 176/82 H 96 10/29/17 09:18 68 204/85 H 10/29/17 09:17 204/85 H 10/29/17 07:40 98.0 F 68 12 10/29/17 07:15 98.0 F 68 12 204/85 H 94 L 10/29/17 04:03 97.7 F 66 16 179/81 H 95 Weight Weight 152 lb 9.6 oz I&O: 10/28/17 10/29/17 10/30/17 06:59 06:59 06:59 Intake Total 668 481 Balance 668 481 Result Diagrams: 10/29/17 03:59 10/29/17 03:59 Phys Exam - Physical Examination HEENT: PERRLA, moist MMs Neck: no JVD, supple Respiratory: no wheezing, no rales Cardiovascular: RRR, no significant murmur Gastrointestinal: soft, non-tender, no distention, positive bowel sounds PD cath+ Musculoskeletal: no edema, pulses present Neurological: non-focal, moves all 4 limbs Psychiatric: normal affect, A&O x 3 Dx/Plan (1) Intractable nausea and vomiting Code(s): R11.2 - NAUSEA WITH VOMITING, UNSPECIFIED Status: Resolved (2) CKD (chronic kidney disease) stage 4, GFR 15-29 ml/min Code(s): N18.4 - CHRONIC KIDNEY DISEASE, STAGE 4 (SEVERE) Status: Chronic (3) Anemia in chronic kidney disease Code(s): N18.9 - CHRONIC KIDNEY DISEASE, UNSPECIFIED; D63.1 - ANEMIA IN CHRONIC KIDNEY DISEASE Status: Chronic Qualifiers: Chronic kidney disease stage: stage 4 (severe) Qualified Code(s): N18.4 - Chronic kidney disease, stage 4 (severe); D63.1 - Anemia in chronic kidney disease; D63.1 - Anemia in chronic kidney disease Comment: Ferrou sulfate and Procrit. (4) HTN (hypertension) Code(s): I10 - ESSENTIAL (PRIMARY) HYPERTENSION Status: Chronic Qualifiers: Hypertension type: essential hypertension Qualified Code(s): I10 - Essential (primary) hypertension (5) Metabolic acidosis Code(s): E87.2 - ACIDOSIS Status: Chronic - Plan hemostable -: dc pt home -: to f/u with her driller and broacher and as adv * .
--- NOTE | 2017-10-30 13:32 | DIS ---
DATE OF ADMISSION: 10/28/2017 DATE OF DISCHARGE: 10/29/2017 DISCHARGE DISPOSITION: To home. PRIMARY DISCHARGE DIAGNOSES: Intractable nausea and vomiting completely resolved. SECONDARY DISCHARGE DIAGNOSES: Chronic kidney disease stage 4, chronic anemia due to kidney disease, hypertension, metabolic acidosis due to kidney disease. PROCEDURES DONE DURING HOSPITALIZATION: H&H 7.8 and 23, platelet count 179. Discharge BUN and creatinine is 53 and 4.6, serum bicarbonate of 16 on the day of discharge. Potassium 5.1, albumin is 3.3. DISCHARGE MEDICATIONS: Coreg 25 mg twice daily, clonidine 0.2 mg 3 times daily , ferrous sulfate 324 mg p.o. daily, Procardia-XL 30 mg daily, sodium bicarbonate 650 mg daily, Ultram p.r.n. for pain. ALLERGIES: No known drug allergies. INPATIENT CONSULTS: Dr. Reeder for Nephrology. BRIEF COURSE DURING HOSPITALIZATION: The patient initially came to ER on the with complaints of intractable nausea, vomiting, and unable to eat or drink. She has had placement of a peritoneal dialysis catheter on Sunday and fistula placed on the left forearm for chronic kidney disease with slow progression towards end-stage renal disease. The patient did not have any abdominal pain and her abdomen was benign. She was admitted for intractable nausea, vomiting with moderate dehydration. The patient has had gentle IV hydration done. Her nausea and vomiting has completely resolved prior to discharge. No imaging studies were done for the abdomen. Likely her nausea and vomiting was due to the recent placement of peritoneal dialysis catheter, although her abdomen was benign clinically. If patient were to have recurrent symptoms, she will likely need imaging studies. She needs to follow up with Dr. Brown as advised, Dr. Reeder as advised and primary care physician in 1 week. Please see a face to face documentation on [employer] for the day of discharge. [id number]
== END 2017-10-29 12:25 | disposition home or self-care (01) ==
LOC: ERS 17:01 → 2SW 19:40
PROVIDERS: ADMIT Internal Medicine; ATTEND Internal Medicine
DX: R11.2 Nausea with vomiting, unspecified (principal); E86.0 Dehydration; I12.9 Hypertensive chronic kidney disease with stage 1 through stage 4 chronic kidney disease, or unspecified chronic kidney disease; E11.22 Type 2 diabetes mellitus with diabetic chronic kidney disease; N18.4 Chronic kidney disease, stage 4 (severe); D63.1 Anemia in chronic kidney disease; E87.2 Acidosis; Z79.899 Other long term (current) drug therapy; Z99.2 Dependence on renal dialysis; Z90.49 Acquired absence of other specified parts of digestive tract; Z83.3 Family history of diabetes mellitus
CPT/HCPCS: 36415; 80048; 80053; 83735; 84100; 85025; 85610; 85730; 93005; 96360; 96361; A4216; G0378; J1644

== ENCOUNTER 2019-12-27 20:02 | Emergency (ER) | payer BC, OTHER | END 2019-12-27 20:47 | disposition home or self-care (01) | LOC: ERS 20:02 | DX: I10 Essential (primary) hypertension (principal); Z20.828 Contact with and (suspected) exposure to other viral communicable diseases; E11.9 Type 2 diabetes mellitus without complications; Z79.899 Other long term (current) drug therapy; Z79.82 Long term (current) use of aspirin | CPT/HCPCS: 87635; 99283; U0003 ==